=== PATIENT | female | born 1965 | race Caucasian/White ===

== ENCOUNTER 2020-05-30 22:14 | Emergency (ER) | payer SELFPAY ==
[2020-05-30 22:15] VITALS: BP 135/94; PULSE 108; RESP 18; TEMP 36.3; O2SAT 95; BMI 25.3
--- NOTE | 2020-05-30 22:30 | ED.VIS.GEN ---
History of Present Illness Chief Complaint: Cough Informant: Patient Onset: Yesterday Current Severity: Mild Maximum Severity: Moderate Narrative: Patient presents with cough and shortness of breath for the past 2 days. She denies fever or chills. She is bringing up clear sputum. She states her lungs feel very tight like she cannot get enough air in. She is a smoker but has never been diagnosed with COPD. He denies exposure to anyone known to have Covid. Past Medical History - Allergies and Home Meds Allergies/Adverse Reactions: Allergies ciprofloxacin [From Cipro] Allergy (Verified 05/30/20 22:18) Hives Lives: Spouse/ Significant Other Smoking Status: Current every day smoker Review of Systems General: Denies: Chills, Fever Eyes: Denies: Visual changes - bilaterally ENT: Denies: Bilateral ear pain Cardiovascular: Denies: Chest pain Respiratory: Reports: Dyspnea, Cough, Sputum Gastrointestinal: Denies: Abdominal pain, Vomiting Musculoskeletal: Denies: Extremity Pain Skin: Denies: Rash Neurological: Denies: Headache Hematologic: Denies: Easy bruising, Easy bleeding Allergy: Denies: Uticaria Physical Exam Vital Signs/Narrative: Vital Signs Temp Pulse Resp BP Pulse Ox 05/30/20 22:15 97.3 F L 108 H 18 135/94 H 95 Inital Vital Signs reviewed: Yes General: Well nourished, Well developed Head: Normocephalic ENT: Moist mucous membranes Neck: Supple Cardiovascular: Regular rate, Regular rhythm Respiratory: - - Tight expiratory wheezes throughout Abdomen: Soft, Nontender Skin: Normal color Neurological: Alert, Oriented x3 Psychological: Normal affect Diagnostic/Tx/Re-eval Impressions Chest X-Ray 05/30/20 22:45 IMPRESSION: Normal x-ray examination of the chest. Electronically Signed: Trev Stevensford, at 23:05 EDT Tel , Service support , 05/30/20 22:45 Chest 1 View (Portable) [RAD] Stat - Medical Decision Making Patient received DuoNeb followed by 2 albuterol treatments along with p.o. prednisone. Chest x-ray is unremarkable. On repeat evaluation patient does have improved air movement throughout. I suspect that she may have underlying COPD with longstanding history of smoking. She will be treated with prednisone, Zithromax, and albuterol inhaler at home. Covid test was obtained and sent as a send out. ED Disposition - Plan for ED Patient: Disposition: Home or Assisted Living Diagnosis: Bronchitis with bronchospasm Instructions: Acute Bronchitis Prescriptions: Prednisone [Deltasone] 40 mg PO DAILY #10 tablet Albuterol Aerosols [Ventolin Aerosols] 2.5 mg INHALATION Q4H PRN #25 vial Azithromycin [Zithromax] 250 mg PO DAILY #4 tablet Referrals: Anusha Mccurdy MD [STAFF PHYSICIAN] - 1-2 Weeks
[2020-05-30] MEDS: Ipratropium/Albuterol Sulfate 3 ML AMPUL.NEB INHALATION (22:44)
--- NOTE | 2020-05-30 22:45 | RAD_ITS ---
STUDY: X-RAY CHEST REASON FOR EXAM: Female, 55 years old. COUGH X2 DAYS TECHNIQUE: Single frontal view of the chest. COMPARISON: None. FINDINGS: The lungs are clear and expanded. There is no demonstrated pleural abnormality. Normal size heart. Normal mediastinum and maite. Normal visualized pulmonary arteries. Normal visualized aortic arch and descending thoracic aorta. Normal visualized thoracic spine. Normal visualized ribs, clavicles, and shoulders. There is no demonstrated abnormality of the visualized soft tissue structures of the upper abdomen. RAD/Chest 1 View (Portable) IMPRESSION: Normal x-ray examination of the chest. Electronically Signed: Trev Fernandez, at 23:05 EDT Tel , Service support ,
[2020-05-30 22:49] VITALS: PULSE 110; RESP 22; RESP 24; O2SAT 93
[2020-05-30] MEDS: predniSONE 20 MG Tablet 60 MG PO (22:50)
[2020-05-30] MEDS: Albuterol 2.5 MG/3 ML VIAL.NEB. INHALATION ×2 (23:09)
--- NOTE | 2020-05-30 23:35 | CPS ---
x2 Albuterol given to pt. in ED as well
[2020-05-31] MEDS: Azithromycin 250 MG Tablet 500 MG PO (00:10)
[2020-05-31 00:11] VITALS: BP 138/72; PULSE 100; RESP 16; O2SAT 98
== END 2020-05-31 00:11 | disposition home or self-care (01) ==
PROVIDERS: Emergency Provider Emergency Medicine
DX: J40 Bronchitis, not specified as acute or chronic (principal); J98.01 Acute bronchospasm; F17.200 Nicotine dependence, unspecified, uncomplicated
CPT/HCPCS: 71045; 87635; 94640; 99251; 99283; C9803; G0463; U0003

== ENCOUNTER 2020-06-09 23:26 | Emergency (ER) | payer SELFPAY ==
[2020-06-09 23:27] VITALS: BP 103/48; PULSE 140; RESP 20; TEMP 36.2; O2SAT 92; BMI 25.3
[2020-06-09 23:36] VITALS: O2SAT 97
--- NOTE | 2020-06-09 23:42 | EKG12_ITS ---
Test Reason : DYSRHYTHMIA Blood Pressure : / mmHG Vent. Rate : 112 BPM Atrial Rate : 112 BPM P-R Int : 156 ms QRS Dur : 070 ms QT Int : 318 ms P-R-T Axes : 063 047 063 degrees QTc Int : 434 ms Sinus tachycardia Nonspecific T wave abnormality Abnormal ECG Confirmed by GUILLERMO WILLSON, AILYN ([id number]), film or videotape editor ISAIAH ROSEN ([id number]) on 06/13/2020 12:57:45 PM Referred By: MR Confirmed By:AILYN LI MD
--- NOTE | 2020-06-09 23:44 | ED.DCSUM_ITS ---
History of Present Illness Chief Complaint: Shortness of Breath Informant: Patient Narrative: Patient presenting for evaluation secondary to shortness of breath and cough. Patient's never a smoker, she does not have an underlying diagnosis of COPD although she potentially has an element of chronic bronchitis or COPD. She was seen in the emergency department 10 days ago for shortness of breath, had a work-up that included a chest x-ray and a COVID test that were negative and she was discharged with a course of azithromycin and prednisone and a butyryl inhaler. Patient tells me that she finished the course of azithromycin and prednisone and did have some modest improvement. She was confused why she was not given a nebulizer, and has been apparently mixing the albuterol with water and trying to steam it into her mouth and inhale it that way, and states that it is not helping her. Patient states that tonight she felt significantly worse. She is coughing and short of breath. Her chest feels tight. Patient denies any fevers. Cough is minimally productive of clear sputum. Patient denies any nausea vomiting or diarrhea associated with this. Review of systems otherwise negative. Past Medical History - Allergies and Home Meds Allergies/Adverse Reactions: Allergies ciprofloxacin [From Cipro] Allergy (Verified 06/09/20 23:28) Nicho Primary Care Physician: Care Physician,No Primary [Primary Care Provider] - Prior records reviewed: Yes Past Medical History: - - Likely undiagnosed COPD Smoking Status: Current every day smoker Alcohol: None Drugs: None Review of Systems All systems negative except as indicated General: Denies: Chills, Fever, Sweats Eyes: Denies: Visual changes - bilaterally, Diplopia ENT: Denies: Rhinorrhea, Sore throat Cardiovascular: Reports: Heart racing Respiratory: Reports: Dyspnea, Cough, Sputum Gastrointestinal: Denies: Abdominal pain, Nausea, Vomiting, Diarrhea, Melena, Hematochezia Genitourinary: Denies: Dysuria, Hematuria, Frequency Musculoskeletal: Denies: Back pain, Extremity Pain Skin: Denies: Rash, Wounds Neurological: Denies: Headache, Weakness, Numbness Physical Exam Vital Signs/Narrative: Vital Signs Temp Pulse Resp BP Pulse Ox 06/09/20 23:27 97.2 F L 140 H 20 H 103/48 L 92 Inital Vital Signs reviewed: Yes General: Well nourished, Well developed, No Acute Distress Head: Normocephalic, Atraumatic Eyes: Perrl, EOMI ENT: Moist mucous membranes, No rhinorrhea Neck: Supple, Nontender Cardiovascular: Regular rhythm, No murmurs, Tachycardia, - - 2+ radial pulses bilaterally symmetric Respiratory: Chest nontender, Wheezing - Noted throughout the lung meneses, - - Patient is speaking in full sentences, does not have retractions. Abdomen: Soft, Nontender, Nondistended, Normal bowel sounds Back: Nontender, Normal Inspection Extremities: Nontender, No edema Skin: Normal color, No rash Neurological: Alert, Oriented x3, Cranial nerves II-XII grossly intact, Normal Strength, Normal Sensation Psychological: Normal affect, Normal Mood Diagnostic/Tx/Re-eval Laboratory Data 06/10/20 06/10/20 01:20 01:20 WBC 10.3 RBC 5.09 Hgb 14.3 Hct 45.8 MCV 90.0 MCH 28.1 MCHC 31.2 L RDW Std Deviation 43.4 RDW Coeff of Mahesh 13.2 Plt Count 171 MPV 11.0 Immature Gran % (Auto) 0.600 Neut % (Auto) 59.3 Lymph % (Auto) 30.7 [place] % (Auto) 4.7 Eos % (Auto) 4.4 Baso % (Auto) 0.3 Absolute Neuts (auto) 6.1 Absolute Lymphs (auto) 3.17 Nucleated RBC % 0 Sodium 144 Potassium 3.6 Chloride 113 H Carbon Dioxide 24.0 Anion Gap 7 BUN 14 Creatinine 0.94 Estim Creat Clear Calc 51.03 Est GFR (MDRD) Af Amer 79 Est GFR (MDRD) Non-Af 66 BUN/Creatinine Ratio 14.9 Glucose 182 H Calcium 9.2 Troponin I < 0.015 - EKG Initial EKG Interpretation: - - Sinus tachycardia with a rate of 112. Nonspecific diffuse T wave flattening is noted with isoelectric ST segments. Normal AL and QTc intervals. No evidence of acute ischemia or arrhythmia. - Medical Decision Making Patient presented secondary to shortness of breath. Upon arrival the patient was noted to be tachypneic and tachycardic with respiratory rates in the high 20s cardiac rates in the 140s. Patient was given DuoNeb and a butyryl treatments as well as steroids. Laboratory work-up including CBC and chemistry found to be unremarkable. Chest x-ray was obtained which was found to be negative by my personal review. Patient was ambulated in the emergency department, and maintained a pulse ox 97%. She was persistently tachycardic. I discussed patient's case with the hospitalist, who recommended high-dose steroids and outpatient follow-up. Patient be placed on a prednisone taper. She will be given a nebulizer as well as a butyryl. Patient will be given a PCP off the referral list, will be recommended to follow-up there as soon as possible. ED Disposition - Plan for ED Patient: Disposition: Home or Assisted Living Diagnosis: COPD exacerbation Instructions: ED COPD Flare Prescriptions: Nebulizer [Aeroneb Go Nebulizer] 1 ea MC 4X/DAY #1 ea Prescription Printed Prednisone 10 mg PO DAILY #63 tab Prescription Printed Albuterol Aerosols [Ventolin Aerosols] 2.5 mg INHALATION Q4H PRN #25 vial Prescription Printed Referrals: Arturo Garcia DO [NON CLINICAL AFFILIATE] - As soon as possible
[2020-06-09] MEDS: Benzonatate 100 MG Capsule 200 MG PO (23:59)
[2020-06-09] MEDS: predniSONE 20 MG Tablet 60 MG PO (23:59)
--- NOTE | 2020-06-10 | RAD_ITS ---
STUDY: X-RAY CHEST REASON FOR EXAM: Female, 55 years old. SOB AND COUGH STARTING APPROX. 3 HOURS PRIOR TO ARRIVAL TECHNIQUE: PA and lateral views of the chest. COMPARISON: 05/30/2020 FINDINGS: There are superimposed monitor leads. Stable mild elevation right hemidiaphragm. Few areas of hyperinflation unchanged since previous examination. Mild bronchial prominence, slightly increased. There is no demonstrated pleural abnormality. Normal size heart. Normal mediastinum and maite. Normal visualized pulmonary arteries. Normal visualized aortic arch and descending thoracic aorta. Normal visualized thoracic spine. Normal visualized ribs, clavicles, and shoulders. There is no demonstrated abnormality of the visualized soft tissue structures of the upper abdomen. RAD/Chest PA and Lateral IMPRESSION: Possible mild bronchial inflammation, component of COPD suspected. No pulmonary edema, congestive heart failure or confluent pneumonia. Electronically Signed: Heather Webber MD at 1:59 EDT , Service support ,
[2020-06-10 00:06] VITALS: PULSE 121; RESP 26; RESP 28; O2SAT 94
[2020-06-10] MEDS: Ipratropium/Albuterol Sulfate 3 ML AMPUL.NEB INHALATION (00:06)
[2020-06-10] MEDS: Albuterol 2.5 MG/3 ML VIAL.NEB. INHALATION ×3 (00:06)
--- NOTE | 2020-06-10 00:14 | ED.RN ---
NO OLD EKGS IN MUSE
--- NOTE | 2020-06-10 01:07 | CPS ---
x3 Albuterol given to pt. in ED as well
[2020-06-10 01:27] LABS: Absolute Lymphocyte Count 3.17 X10^3/uL (0.83-4.51); Absolute Neutrophil Count 6.1 X10^3/uL (2.0-7.7); Basophil# 0.03 X10^3/uL; Basophil% 0.3 % (0-1); Eosinophil# 0.45 X10^3/uL; Eosinophils% 4.4 % (0-5); Hematocrit 45.8 % (37-47); Hemoglobin 14.3 g/dL (12.0-15.0); Lymphocyte # 3.17 X10^3/ul (4.0); Lymphocyte % 30.7 % (19-41); Mean Corp Hgb Conc 31.2 g/dL (32-36); Mean Corpuscular Hgb 28.1 pg (27.0-32.0); Monocyte# 0.49 X10^3/uL; Monocyte% 4.7 % (0-10); NRBC Flagged by Analyzer 0 % (0-5); Neutrophil # 6.14 X10^3/uL (2.7-7.7); Neutrophil % 59.3 % (47-70); Platelet Count 171 K/mm3 (150-450); RBC Distribution Width CV 13.2 % (11.6-14.6); RBC Distribution Width SD 43.4 fl (35.1-43.9); Red Blood Count 5.09 M/mm3 (4.2-5.4); White Blood Count 10.3 K/mm3 (4.4-11.0)
[2020-06-10 01:30] VITALS: BP 114/64; PULSE 120; RESP 24; TEMP 36.1; O2SAT 96
--- NOTE | 2020-06-10 01:31 | ED.RN ---
PT IS A HARD STICK 7 IV ATTEMPTS BY VARIOUS NURSES. DR. ESPINO INFORMED. BLOOD DRAW OBTAINED. PT DR. ESPINO OK FOR PT TO BE WITHOUT IV AT THIS TIME.
[2020-06-10 01:46] LABS: Anion Gap 7 (5-15); BUN 14 mg/dL (7-18); BUN/Creat Ratio 14.9 RATIO (10-20); Calcium,Total 9.2 mg/dL (8.5-10.1); Chloride 113 mmol/L (98-107); Creatinine, Serum 0.94 mg/dL (0.55-1.02); EST Glomerular Filtration Rate 66 mL/min (>60); Est Glom Filt Rate - Afr Amer 79 mL/min (>60); Estimated Creatinine Clearance 51.03 ml/min; Glucose 182 mg/dL (74-106); Potassium 3.6 mmol/L (3.5-5.1); Sodium Level 144 mmol/L (136-145)
[2020-06-10 01:55] VITALS: BP 115/82; PULSE 119; RESP 23; O2SAT 96
[2020-06-10 04:04] LABS: Lactic Acid 2.1 mmol/L (0.4-1.9)
[2020-06-10 05:27] LABS: Reflex Lactate? Y
== END 2020-06-10 02:05 | disposition home or self-care (01) ==
PROVIDERS: Emergency Provider Emergency Medicine
DX: J44.1 Chronic obstructive pulmonary disease with (acute) exacerbation (principal); R00.0 Tachycardia, unspecified; F17.200 Nicotine dependence, unspecified, uncomplicated
CPT/HCPCS: 36415; 71046; 80048; 83605; 84484; 85025; 87040; 93005; 94640; 99251; 99285; J7030; A4216; G0463